=== PATIENT | female | born 1945 | race Two or more races ===

== ENCOUNTER 2021-05-02 11:10 | Emergency (ER) | payer MEDICARE ==
[2021-05-02 11:25] VITALS: BP 150/72; PULSE 75; RESP 16; TEMP 98.4
[2021-05-02] MEDS ORDERED: DIPH,PERTUS(ACELL)TETVAC-LF 0.5 ML VIAL IM ONE (11:44)
[2021-05-02] MEDS ORDERED: LIDOCAINE 1% INJ 10MG/ML (20 ML MDV) SQ ONE (11:44)
--- NOTE | 2021-05-02 12:24 | ED ---
Wound/Laceration HPI - General Chief Complaint: Wound/Laceration Stated Complaint: finger lac Time Seen by Provider: 05/02/21 11:38 Source: patient, RN notes reviewed Mode of arrival: ambulatory Limitations: no limitations - History of Present Illness Initial Comments: Patient is a 75-year-old female that presents to emergency department complaining of left index finger laceration. She notes she was cutting up watermelon for graduation green party when she Cut herself with a knife. She notes that she is not up-to-date on her tetanus vaccine. She denied any other issues or complaints at this time. She was a well-appearing well-hydrated 75-year-old female. - Related Data Previous Rx's Medication Instructions Recorded Cephalexin [Keflex] 500 mg PO Q6HR #40 cap 05/02/21 Allergies Allergy/AdvReac Type Severity Reaction Status Date / Time adhesive Allergy Nausea & Verified 05/02/21 11:25 Vomiting shrimp Allergy Unknown Verified 05/02/21 11:25 Review of Systems ROS Statement: Those systems with pertinent positive or pertinent negative responses have been documented in the HPI. ROS Other: All systems not noted in ROS Statement are negative. Past Medical History Past Medical History: Cancer Additional Past Medical History / Comment(s): ovarian cancer History of Any Multi-Drug Resistant Organisms: None Reported Past Surgical History: Appendectomy, Back Surgery, Hysterectomy Past Psychological History: No Psychological Hx Reported Smoking Status: Never smoker Past Alcohol Use History: None Reported Past Drug Use History: None Reported General Exam Limitations: no limitations General appearance: alert, in no apparent distress Head exam: Present: atraumatic, normocephalic, normal inspection Eye exam: Present: normal appearance, PERRL, EOMI. Absent: scleral icterus, conjunctival injection, periorbital swelling Neck exam: Present: normal inspection Respiratory exam: Present: normal lung sounds bilaterally. Absent: respiratory distress, wheezes, rales, rhonchi, stridor Cardiovascular Exam: Present: regular rate, normal rhythm, normal heart sounds. Absent: systolic murmur, diastolic murmur, rubs, gallop, clicks Left Hand Wrist exam: Present: laceration (To the distal aspect of the index finger. Nonbleeding margins well approximated.) Neurological exam: Present: alert, oriented X3 Psychiatric exam: Present: normal affect, normal mood Skin exam: Present: warm, dry, intact, normal color. Absent: rash Course Vital Signs 05/02/21 11:22 Temperature 98.4 F Pulse Rate 75 Respiratory 16 Rate Blood Pressure 150/72 O2 Sat by Pulse 96 Oximetry Procedures - Laceration Laceration #1 Consent Obtained: verbal consent Indication: laceration Site: hand (Index finger distal aspect.) Size (cm): 2 Description: linear Depth: simple, single layer Anesthetic Used: lidocaine 1% Anesthesia Technique: nerve block Amount (mls): 5 Pre-repair: irrigated extensively Type of Sutures: nylon Size of Sutures: 5-0 Number of Sutures: 2 Technique: simple, interrupted Patient Tolerated Procedure: well, no complications Medical Decision Making - Medical Decision Making 25-year-old female with a left index finger laceration obtained while cutting water[employer]. Tetanus vaccine, lidocaine ordered. Patient tolerated suturing well. Case discussed with Dr. Mejia him a patient can discharge home with follow-up to primary care. Disposition Clinical Impression: Laceration Disposition: HOME SELF-CARE Condition: Stable Instructions (If sedation given, give patient instructions): Laceration (ED), Care For Your Stitches (ED) Additional Instructions: Please return to the Emergency Department if symptoms worsen or any other concerns. Please return in 7-10 days to have sutures removed. Keep areas clean and is tried as possible. Take Tylenol and Motrin as needed for pain. Is patient prescribed a controlled substance at d/c from ED?: No Referrals: Kirsten Ramirez MD [Primary Care Provider] - 1-2 days Time of Disposition: 12:23
== END 2021-05-02 12:35 | disposition home or self-care (01) ==
LOC: EC 11:10
DX: S61.211A Laceration without foreign body of left index finger without damage to nail, initial encounter (principal); Z91.09 Other allergy status, other than to drugs and biological substances; Z91.013 Allergy to seafood; Z23 Encounter for immunization; W26.0XXA Contact with knife, initial encounter; Y93.89 Activity, other specified
CPT/HCPCS: 90715; 12041; 99282; 90471; J2001